=== PATIENT | male | born 1955 | race African-American/Black ===

== ENCOUNTER 2024-09-10 13:42 | Inpatient (IN) | payer MEDICARE, OTHER ==
[~2024-09-10] VITALS: Ht 182.9 cm; Wt 90.3 kg
[2024-09-10] MEDS ORDERED: ACETAMINOPHEN ES 500 MG TABLET ONE (14:09)
[2024-09-10 14:13] LABS: BASOPHILS % (AUTO) 0.6 % (0.0-2.0); EOSINOPHILS % (AUTO) 0.6 % (0.0-6.0); HEMATOCRIT 38 % (39-51); HEMOGLOBIN 12.5 g/dL (13.5-17.5); LYMPHOCYTES # (AUTO) 2.4 K/uL (0.8-4.8); MEAN CORPUSCULAR HEMOGLOBIN 28 PG (26.0-33.0); MEAN CORPUSCULAR HGB CONC 33 g/dl (31.0-36.0); MEAN CORPUSCULAR VOLUME 86 fL (80-96); MONOCYTES # (AUTO) 0.5 K/uL (0.1-1.30); MONOCYTES % (AUTO) 7.3 % (2.0-12.0); NEUTROPHILS % (AUTO) 57.5 % (43.0-81.0); PLATELET COUNT (AUTO) 153 K/uL (150-450); RED BLOOD CELL COUNT(AUTO) 4.43 MIL/uL (4.5-6.0)
[2024-09-10] MEDS: ACETAMINOPHEN ES 500 MG TABLET PO ONE (14:15)
[2024-09-10 14:31] LABS: CALCIUM, SERUM 8.9 mg/dL (8.5-10.1); CREATININE 1.3 mg/dL (0.6-1.3); POTASSIUM 4.6 mmol/L (3.5-5.1)
[2024-09-10] MEDS ORDERED: ASPIRIN EC 325 MG TABLET.DR PO ONE (14:33)
[2024-09-10] MEDS: ASPIRIN EC 325 MG TABLET.DR PO ONE (14:36)
[2024-09-10 14:43] LABS: ALBUMIN 3.5 g/dL (3.4-5.0); BILIRUBIN,DIRECT 0.2 mg/dL (0.0-0.2); BILIRUBIN,TOTAL 0.9 mg/dL (0.2-1.0); TOTAL PROTEIN, SERUM 7.7 g/dL (6.4-8.2)
[2024-09-10] MEDS ORDERED: FUROSEMIDE 40 MG/4 ML VIAL ONE (15:59)
[2024-09-10] MEDS: FUROSEMIDE 40 MG/4 ML VIAL IV ONE (16:03)
[2024-09-10] MEDS ORDERED: DIGO125T PO (16:57)
[2024-09-10] MEDS ORDERED: COLC0.6C3 PO (16:57)
[2024-09-10] MEDS ORDERED: HYDR-3972 PO (16:57)
[2024-09-10] MEDS ORDERED: DIVA500T54 PO (16:57)
[2024-09-10] MEDS ORDERED: ALBU2.5V13 NEB (16:57)
[2024-09-10] MEDS ORDERED: FURO-144 PO (16:57)
[2024-09-10] MEDS ORDERED: LOSA50TA39 PO (16:57)
[2024-09-10] MEDS ORDERED: ASPI-1169 PO (16:57)
[2024-09-10] MEDS ORDERED: POTA-10 PO (16:57)
[2024-09-10] MEDS ORDERED: FAMO40TA7 PO (16:57)
[2024-09-10] MEDS ORDERED: METO25TA4 PO (16:57)
[2024-09-10] MEDS ORDERED: ZOLP5TAB8 PO (16:57)
[2024-09-10] MEDS ORDERED: DICL100G34 TP (16:57)
[2024-09-10] MEDS ORDERED: BICT1TAB PO (16:57)
[2024-09-10] MEDS ORDERED: TRAZ-257 PO (16:57)
[2024-09-10] MEDS ORDERED: ALBU18HF2 IH (16:57)
[2024-09-10] MEDS ORDERED: MONT10TA22 PO (16:57)
[2024-09-10] MEDS ORDERED: ATOR20TA PO (16:57)
[2024-09-10] MEDS ORDERED: ZOLPIDEM TARTRATE 5 MG TABLET PO PRN (19:30)
[2024-09-10] MEDS ORDERED: ONDANSETRON HCL/PF 4 MG/2 ML VIAL IVP PRN (19:30)
[2024-09-10] MEDS ORDERED: TRAZODONE 50 MG TABLET PO PRN (19:30)
[2024-09-10] MEDS ORDERED: ALBUTEROL HALF STRENGTH 1.25 MG/3 ML VIAL.NEB NEB PRN (19:30)
[2024-09-10] MEDS ORDERED: HYDROCODONE/APAP 5/325MG TABLET PO PRN (19:30)
[2024-09-10] MEDS ORDERED: ACETAMINOPHEN 325 MG TABLET PO PRN (19:30)
[2024-09-10 20:00] VITALS: BP 158/118; TEMP 97.7; O2SAT 99
[2024-09-10] MEDS: ENOXAPARIN SODIUM 40 MG/0.4 ML DISP.SYRIN SQ SCH (20:32)
[2024-09-10] MEDS: DIVALPROEX SODIUM 500 MG TABLET.DR PO SCH (20:38)
[2024-09-10] MEDS: FAMOTIDINE (20 MG) 20 MG TABLET PO SCH (20:38)
[2024-09-10] MEDS: ATORVASTATIN 10 MG TABLET PO SCH (21:03)
[2024-09-11] VITALS (7 sets, daily range): BP systolic 143–155; BP diastolic 99–111; TEMP 98.1–98.6; O2SAT 93–99
[2024-09-11] MEDS: IPRATROPIUM NEB FS 0.5 MG/2.5 ML AMPUL.NEB NEB PRN (03:03)
[2024-09-11 07:27] LABS: CREATININE 1.1 mg/dL (0.6-1.3); PHOSPHORUS 3.8 mg/dL (2.5-4.9); POTASSIUM 3.7 mmol/L (3.5-5.1)
[2024-09-11 07:42] LABS: BASOPHILS % (AUTO) 0.3 % (0.0-2.0); EOSINOPHILS # (AUTO) 0.1 K/uL (0.0-0.7); EOSINOPHILS % (AUTO) 0.9 % (0.0-6.0); HEMATOCRIT 39 % (39-51); HEMOGLOBIN 12.5 g/dL (13.5-17.5); LYMPHOCYTES # (AUTO) 2.4 K/uL (0.8-4.8); MEAN CORPUSCULAR HEMOGLOBIN 28 PG (26.0-33.0); MEAN CORPUSCULAR HGB CONC 32 g/dl (31.0-36.0); MEAN CORPUSCULAR VOLUME 87 fL (80-96); MONOCYTES # (AUTO) 0.8 K/uL (0.1-1.30); MONOCYTES % (AUTO) 10.4 % (2.0-12.0); NEUTROPHILS % (AUTO) 55.4 % (43.0-81.0); PLATELET COUNT (AUTO) 139 K/uL (150-450); RED BLOOD CELL COUNT(AUTO) 4.45 MIL/uL (4.5-6.0); RED CELL DISTRIBUTION WIDTH 15.4 % (11.5-15.0); WHITE BLOOD COUNT (AUTO) 7.3 K/uL (4.3-11.0)
[2024-09-11] MEDS: POTASSIUM CHLORIDE 10 MEQ TABLET.SA PO SCH (08:39)
[2024-09-11] MEDS: MONTELUKAST SODIUM (10MG) 10 MG TABLET PO SCH (08:39)
[2024-09-11] MEDS: ASPIRIN 81 MG TAB.CHEW PO SCH (08:39)
[2024-09-11] MEDS: COLCHICINE 0.6 MG TABLET PO SCH (08:39)
[2024-09-11] MEDS: METOPROLOL SUCCINATE 25 MG TAB.SR.24H PO SCH (08:40)
[2024-09-11] MEDS: LOSARTAN POTASSIUM 50 MG TABLET PO SCH (08:40)
[2024-09-11] MEDS: predniSONE 20 MG TABLET PO SCH (10:26)
[2024-09-11] MEDS: VALSARTAN 80 MG TABLET PO SCH (10:27)
[2024-09-11] MEDS: LEVOFLOXACIN (250MG) 250 MG TABLET PO SCH (10:27)
[2024-09-11] MEDS: BIKTARVY 50-200-25 MG TABLET NF PO SCH (12:01)
[2024-09-11] MEDS: MUPIROCIN OINT 2% 22 GM TUBE TP SCH (12:03)
[2024-09-11] MEDS: DIGOXIN 0.125 MG TABLET PO SCH (13:12)
[2024-09-11] MEDS: ALBUTEROL HALF STRENGTH 1.25 MG/3 ML VIAL.NEB NEB SCH (13:30)
[2024-09-11] MEDS: IPRATROPIUM NEB FS 0.5 MG/2.5 ML AMPUL.NEB NEB SCH (13:30)
[2024-09-12] VITALS (13 sets, daily range): BP systolic 114–143; BP diastolic 62–98; TEMP 97–98.2; O2SAT 94–100
[2024-09-12] MEDS: DICLOFENAC TOPICAL 100 GM TUBE TP PRN (09:23)
[2024-09-12] MEDS: hydrALAZINE HCL 50 MG TABLET PO SCH (09:31)
[2024-09-13 04:00] VITALS: BP 140/82; TEMP 97.8; O2SAT 96
[2024-09-13 05:00] VITALS: BP 135/80; TEMP 97.6; O2SAT 96
[2024-09-13 07:43] LABS: HEMATOCRIT 38 % (39-51); HEMOGLOBIN 12.4 g/dL (13.5-17.5); LYMPHOCYTES # (AUTO) 1.4 K/uL (0.8-4.8); LYMPHOCYTES % (AUTO) 13.2 % (20.0-44.0); MEAN CORPUSCULAR HEMOGLOBIN 28 PG (26.0-33.0); MEAN CORPUSCULAR HGB CONC 33 g/dl (31.0-36.0); MEAN CORPUSCULAR VOLUME 86 fL (80-96); MONOCYTES # (AUTO) 1.2 K/uL (0.1-1.30); MONOCYTES % (AUTO) 10.7 % (2.0-12.0); NEUTROPHILS # (AUTO) 8.3 K/uL (1.8-8.9); NEUTROPHILS % (AUTO) 76.1 % (43.0-81.0); PLATELET COUNT (AUTO) 181 K/uL (150-450); RED BLOOD CELL COUNT(AUTO) 4.42 MIL/uL (4.5-6.0); RED CELL DISTRIBUTION WIDTH 15.3 % (11.5-15.0); WHITE BLOOD COUNT (AUTO) 10.9 K/uL (4.3-11.0)
[2024-09-13 08:15] VITALS: O2SAT 98
[2024-09-13 08:30] VITALS: O2SAT 99
[2024-09-13] MEDS ORDERED: HYDR-4077 PO (10:17)
[2024-09-13] MEDS ORDERED: PRED50TA PO (10:17)
[2024-09-13] MEDS ORDERED: LEVO250T59 PO (10:17)
[2024-09-13] MEDS: hydrALAZINE HCL 50 MG TABLET PO SCH (12:38)
[2024-09-13 13:00] VITALS: BP 136/86; TEMP 97.2; O2SAT 96
== END 2024-09-13 14:35 | disposition hospice, home (50) | DRG 291 ==
LOC: ER 13:45 → TELE1 18:02 → MEDSG1 09-12 08:54
PROVIDERS: ADMIT Nurse Practitioner Acute Care; ATTEND Internal Medicine
PROC: 0HBNXZZ Excision of Left Foot Skin, External Approach (ICD-10-PCS; principal; 2024-09-11)
PROC: 0HBMXZZ Excision of Right Foot Skin, External Approach (ICD-10-PCS; 2024-09-11)
DX: I11.0 Hypertensive heart disease with heart failure (principal); I50.23 Acute on chronic systolic (congestive) heart failure; J96.90 Respiratory failure, unspecified, unspecified whether with hypoxia or hypercapnia; J45.901 Unspecified asthma with (acute) exacerbation; I48.91 Unspecified atrial fibrillation; E78.5 Hyperlipidemia, unspecified; M20.12 Hallux valgus (acquired), left foot; M20.11 Hallux valgus (acquired), right foot; M20.42 Other hammer toe(s) (acquired), left foot; M20.41 Other hammer toe(s) (acquired), right foot; Z86.73 Personal history of transient ischemic attack (TIA), and cerebral infarction without residual deficits; Z20.822 Contact with and (suspected) exposure to COVID-19; M79.672 Pain in left foot; M79.671 Pain in right foot; L84 Corns and callosities
CPT/HCPCS: 36415; 70220-TC; 71045-TC; 80048-TC; 80061-TC; 80076-TC; 83735-TC; 83880; 84100-TC; 84484-TC; 85025-TC; 93307-TC; 94760-TC; 94762-TC; 94799-TC; G0378; J1650; J1940

== ENCOUNTER 2024-11-19 07:25 | Inpatient (IN) | payer MEDICARE, OTHER ==
[~2024-11-19] VITALS: Ht 188 cm; Wt 89.8 kg
[~2024-11-19 07:25] MED LIST: ALBU18HF2 IH; ALBU2.5V13 NEB; ASPI-1169 PO; ATOR20TA PO; BICT1TAB PO; COLC0.6C3 PO; DICL100G34 TP; DIGO125T PO; DIVA500T54 PO; FAMO40TA7 PO; FURO-144 PO; HYDR-3972 PO; HYDR-4077 PO; LEVO250T59 PO; LOSA50TA39 PO; METO25TA4 PO; MONT10TA22 PO; POTA-10 PO; PRED50TA PO; TRAZ-257 PO; ZOLP5TAB8 PO
[2024-11-19 08:13] LABS: BASOPHILS % (AUTO) 0.5 % (0.0-2.0); EOSINOPHILS # (AUTO) 0.1 K/uL (0.0-0.7); EOSINOPHILS % (AUTO) 0.8 % (0.0-6.0); HEMATOCRIT 43 % (39-51); HEMOGLOBIN 14.2 g/dL (13.5-17.5); LYMPHOCYTES # (AUTO) 2.1 K/uL (0.8-4.8); LYMPHOCYTES % (AUTO) 30.3 % (20.0-44.0); MEAN CORPUSCULAR HEMOGLOBIN 28 PG (26.0-33.0); MEAN CORPUSCULAR HGB CONC 33 g/dl (31.0-36.0); MEAN CORPUSCULAR VOLUME 85 fL (80-96); MONOCYTES # (AUTO) 0.7 K/uL (0.1-1.30); MONOCYTES % (AUTO) 10.2 % (2.0-12.0); NEUTROPHILS # (AUTO) 3.9 K/uL (1.8-8.9); NEUTROPHILS % (AUTO) 58.2 % (43.0-81.0); PLATELET COUNT (AUTO) 155 K/uL (150-450); RED BLOOD CELL COUNT(AUTO) 5.11 MIL/uL (4.5-6.0); RED CELL DISTRIBUTION WIDTH 17.6 % (11.5-15.0); WHITE BLOOD COUNT (AUTO) 6.8 K/uL (4.3-11.0)
[2024-11-19 08:22] LABS: CALCIUM, SERUM 9.8 mg/dL (8.5-10.1); CREATININE 1.2 mg/dL (0.6-1.3)
[2024-11-19 09:30] VITALS: BP 169/103; TEMP 97.9; O2SAT 97
[2024-11-19] MEDS ORDERED: Z GUARD REMEDY 4 OZ OINT TP PRN (09:30)
[2024-11-19] MEDS ORDERED: ONDANSETRON HCL/PF 4 MG/2 ML VIAL IVP PRN (09:30)
[2024-11-19] MEDS ORDERED: ZOLPIDEM TARTRATE 5 MG TABLET PO PRN (09:30)
[2024-11-19] MEDS ORDERED: MAG HYDROX/AL HYDROX/SIMETH 30 ML UDC PO PRN (09:30)
[2024-11-19] MEDS ORDERED: MAGNESIUM HYDROXIDE 30 ML UDC PO PRN (09:30)
[2024-11-19] MEDS ORDERED: ALBUTEROL SULFATE 8 GM HFA.AER.AD IH PRN (09:30)
[2024-11-19] MEDS ORDERED: BIKTARVY 50-200-25 MG TABLET NF PO ONE (11:00)
[2024-11-19] MEDS: BIKTARVY 50-200-25 MG TABLET NF PO SCH (12:17)
[2024-11-19] MEDS: hydrALAZINE HCL 50 MG TABLET PO SCH (13:43)
[2024-11-19 15:34] VITALS: O2SAT 96
[2024-11-19] MEDS: ALBUTEROL FS 2.5 MG/0.5 ML VIAL.NEB NEB PRN (15:34)
[2024-11-19 15:44] VITALS: O2SAT 99
[2024-11-19 16:07] VITALS: BP 165/103; TEMP 98.2; O2SAT 97
[2024-11-19] MEDS: DIVALPROEX SODIUM 500 MG TABLET.DR PO SCH (17:24)
[2024-11-19] MEDS: FAMOTIDINE (20 MG) 20 MG TABLET PO SCH (17:25)
[2024-11-19] MEDS: ACETAMINOPHEN 325 MG TABLET PO PRN (19:32)
[2024-11-19 20:00] VITALS: BP 137/89; TEMP 97.5; O2SAT 95
[2024-11-19] MEDS: TRAZODONE 50 MG TABLET PO SCH (22:00)
[2024-11-20 07:13] LABS: BASOPHILS % (AUTO) 0.5 % (0.0-2.0); EOSINOPHILS % (AUTO) 0.7 % (0.0-6.0); HEMATOCRIT 41 % (39-51); HEMOGLOBIN 13.6 g/dL (13.5-17.5); LYMPHOCYTES # (AUTO) 2.4 K/uL (0.8-4.8); MEAN CORPUSCULAR HEMOGLOBIN 28 PG (26.0-33.0); MEAN CORPUSCULAR HGB CONC 33 g/dl (31.0-36.0); MEAN CORPUSCULAR VOLUME 85 fL (80-96); MONOCYTES # (AUTO) 0.8 K/uL (0.1-1.30); MONOCYTES % (AUTO) 11.1 % (2.0-12.0); NEUTROPHILS # (AUTO) 3.6 K/uL (1.8-8.9); NEUTROPHILS % (AUTO) 52.7 % (43.0-81.0); PLATELET COUNT (AUTO) 143 K/uL (150-450); RED BLOOD CELL COUNT(AUTO) 4.81 MIL/uL (4.5-6.0); RED CELL DISTRIBUTION WIDTH 17.5 % (11.5-15.0); WHITE BLOOD COUNT (AUTO) 6.8 K/uL (4.3-11.0)
[2024-11-20 07:17] LABS: CALCIUM, SERUM 9.4 mg/dL (8.5-10.1); CREATININE 0.9 mg/dL (0.6-1.3); MAGNESIUM 1.9 mg/dL (1.8-2.4); PHOSPHORUS 3.6 mg/dL (2.5-4.9); POTASSIUM 3.4 mmol/L (3.5-5.1)
[2024-11-20 08:00] VITALS: BP 163/95; TEMP 97.3; O2SAT 94
[2024-11-20] MEDS: ASPIRIN 81 MG TAB.CHEW PO SCH (08:20)
[2024-11-20] MEDS: DIGOXIN 0.125 MG TABLET PO SCH (08:20)
[2024-11-20] MEDS: FUROSEMIDE 40 MG TABLET PO SCH (08:20)
[2024-11-20] MEDS: MONTELUKAST SODIUM (10MG) 10 MG TABLET PO SCH (08:21)
[2024-11-20] MEDS: METOPROLOL SUCCINATE 25 MG TAB.SR.24H PO SCH (08:21)
[2024-11-20] MEDS: LOSARTAN POTASSIUM 50 MG TABLET PO SCH (08:21)
[2024-11-20] MEDS: POTASSIUM CHLORIDE 10 MEQ TABLET.SA PO SCH (08:22)
[2024-11-20] MEDS: BIKTARVY PO SCH (08:22)
[2024-11-20] MEDS: DICLOFENAC TOPICAL 100 GM TUBE TP PRN (08:35)
[2024-11-20] MEDS ORDERED: BIKTARVY 50-200-25 MG TABLET NF PO SCH (09:00)
[2024-11-20 16:00] VITALS: BP 132/86; TEMP 98.6; O2SAT 94
[2024-11-20 20:00] VITALS: BP 141/100; TEMP 97.5; O2SAT 96
[2024-11-20 20:15] VITALS: O2SAT 98
[2024-11-21 06:46] LABS: CALCIUM, SERUM 9.6 mg/dL (8.5-10.1); POTASSIUM 3.5 mmol/L (3.5-5.1)
[2024-11-21 06:57] LABS: BASOPHILS % (AUTO) 0.2 % (0.0-2.0); EOSINOPHILS % (AUTO) 0.3 % (0.0-6.0); HEMATOCRIT 43 % (39-51); HEMOGLOBIN 14.2 g/dL (13.5-17.5); LYMPHOCYTES # (AUTO) 2.6 K/uL (0.8-4.8); LYMPHOCYTES % (AUTO) 34.4 % (20.0-44.0); MEAN CORPUSCULAR HEMOGLOBIN 28 PG (26.0-33.0); MEAN CORPUSCULAR HGB CONC 33 g/dl (31.0-36.0); MEAN CORPUSCULAR VOLUME 84 fL (80-96); MONOCYTES # (AUTO) 0.8 K/uL (0.1-1.30); MONOCYTES % (AUTO) 10.9 % (2.0-12.0); NEUTROPHILS # (AUTO) 4.1 K/uL (1.8-8.9); NEUTROPHILS % (AUTO) 54.2 % (43.0-81.0); PLATELET COUNT (AUTO) 152 K/uL (150-450); RED CELL DISTRIBUTION WIDTH 17.7 % (11.5-15.0); WHITE BLOOD COUNT (AUTO) 7.5 K/uL (4.3-11.0)
[2024-11-21 08:00] VITALS: BP 127/108; TEMP 98.2; O2SAT 93
[2024-11-21 16:00] VITALS: BP 105/78; TEMP 98.1; O2SAT 94
[2024-11-21 20:00] VITALS: BP 127/82; TEMP 98.2; O2SAT 95
[2024-11-21] MEDS: HYDROCODONE/APAP 5/325MG TABLET PO PRN (21:20)
[2024-11-22 08:00] VITALS: BP 119/92; TEMP 97.7; O2SAT 96
[2024-11-22 15:31] LABS: THYROID STIMULATING HORMONE 1.27 uIU/mL (0.358-3.74)
[2024-11-22 16:00] VITALS: BP 107/67; TEMP 98.5; O2SAT 96
[2024-11-22 20:00] VITALS: BP 133/88; TEMP 98.1; O2SAT 18
[2024-11-23 07:00] VITALS: BP 135/95; TEMP 97.3; O2SAT 96
[2024-11-23] MEDS: LACTULOSE 10 G/15 ML UDC (PYXIS) PO SCH (08:23)
[2024-11-23 15:00] VITALS: BP 125/84; TEMP 98; O2SAT 99
== END 2024-11-23 18:18 | DRG 642 ==
LOC: ER 07:28 → MED 08:36
PROVIDERS: ADMIT Internal Medicine; ATTEND Internal Medicine
DX: E72.20 Disorder of urea cycle metabolism, unspecified (principal); G93.41 Metabolic encephalopathy; I50.33 Acute on chronic diastolic (congestive) heart failure; K40.90 Unilateral inguinal hernia, without obstruction or gangrene, not specified as recurrent; J45.909 Unspecified asthma, uncomplicated; Z79.82 Long term (current) use of aspirin; Z79.899 Other long term (current) drug therapy; I48.91 Unspecified atrial fibrillation; G93.89 Other specified disorders of brain; I11.0 Hypertensive heart disease with heart failure; F99 Mental disorder, not otherwise specified; S06.30AS Unspecified focal traumatic brain injury with loss of consciousness status unknown, sequela; X58.XXXS Exposure to other specified factors, sequela; R53.1 Weakness; Z86.69 Personal history of other diseases of the nervous system and sense organs; Z86.73 Personal history of transient ischemic attack (TIA), and cerebral infarction without residual deficits
CPT/HCPCS: 36415; 70450-TC; 71045-TC; 80048-TC; 80061-TC; 82140-TC; 82607-TC; 83735-TC; 84100-TC; 84443-TC; 85025-TC; 94799-TC; G0378